=== PATIENT | male | born 1995 | race Two or more races ===

== ENCOUNTER 2025-01-06 08:55 | Day surgery (SDC) | payer BC, SELFPAY ==
[2025-01-05 06:56] VITALS: BMI 32.7
--- NOTE | 2025-01-05 07:13 | EKG_ITS ---
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
[2025-01-05 09:09] LABS: Basophils # (Auto) 0.1 Thou/mm3 (0.0-0.2); Basophils % (Auto) 1 % (0-2.5); Eosinophils # (Auto) 0.2 Thou/mm3 (0.0-0.5); Eosinophils % (Auto) 3 % (0-10); Hematocrit 45.8 % (41.0-53.0); Hemoglobin 15.5 g/dL (13.5-16.0); Immature Granulocytes % (Auto) 1 % (0-0); Immature Granulocytes Auto 0.08 Thou/mm3 (0.00-0.00); Lymphocytes % (Auto) 25 % (10-50); Mean Corpuscular HGB Conc 33.8 g/dl (31.0-37.0); Mean Corpuscular Hemoglobin 29.2 pg (25.0-35.0); Mean Corpuscular Volume 86 fL (80-100); Monocytes # (Auto) 0.8 Thou/mm3 (0.0-0.8); Monocytes % (Auto) 10 % (0-12); Neutrophils % (Auto) 61 % (37-80); Nucleated Red Blood Cell % 0 /100 WBC (0); Platelet Count 298 Thou/mm3 (140-440); RDW Standard Deviation 40.9 fL (35.1-43.9); White Blood Count 8.2 Thou/mm3 (3.8-10.6)
[2025-01-05 09:32] LABS: Alanine Aminotransferase 108 U/L (10-49); Albumin, Serum 4.5 gm/dL (3.5-5.0); Albumin/Globulin Ratio 1.9 (1.2-2.2); Alkaline Phosphatase 44 U/L (46-116); Anion Gap 8 (7-16); Aspartate Amino Transferase 66 U/L (0-34); BUN/Creatinine Ratio 13 Ratio (12-20); Bilirubin,Total 0.3 mg/dL (0.3-1.2); Blood Urea Nitrogen 14 mg/dL (9-23); Calcium 9.2 mg/dL (8.3-10.6); Calcium (Corrected) 9.2 mg/dL (8.5-10.1); Carbon Dioxide 27.4 mMol/L (20.0-31.0); Chloride 106 mMol/L (98-107); Creatinine (Component) 1.1 mg/dL (0.6-1.3); Globulin 2.4 gm/dL (2.3-3.5); Glucose 111 mg/dL (74-106); Osmolality,Calculated 282 (275-295); Potassium 4.3 mMol/L (3.4-5.1); Sodium 141 mMol/L (136-145); Total Protein 6.9 gm/dL (5.7-8.2); eGFR > 60 See Note
[2025-01-06] VITALS (7 sets, daily range): BP systolic 107–146; BP diastolic 51–86; PULSE 78–91; RESP 15–22; TEMP 36.1–36.6; O2SAT 99–100; BMI 33.5
--- NOTE | 2025-01-06 09:40 | CHAP ---
Patient expressed gratitude for prayer before their procedure.
--- NOTE | 2025-01-06 11:54 | PD.SUROPNT ---
Date of Procedure 01/06/25 Pre Op Diagnosis Pilonidal cyst and sinus without abscess Post Op Diagnosis Pilonidal cyst and sinus without abscess Procedure Wide excision of pilonidal disease Findings Patient was noted to have pilonidal cyst with underlying sinuses and multiple pits without evidence of abscess Procedure Description Patient was taken to the operating room in supine position. After administration of general endotracheal anesthesia, patient was placed in prone jackknife position. His lower back and perineum shaved and prepped and draped in standard surgical manner. Local anesthesia was administered. An elliptical incision was made around the cyst, underlying sinuses and pits. Dissection was deepened into soft tissue. The cyst along with underlying sinuses and pits were excised until healthy appearing soft tissue and skin encountered. The wound was washed and irrigated with Betadine and warm saline. Hemostasis achieved using electrocautery. Deep soft tissue reapproximated with interrupted sutures using 2-0 Vicryl. Subcutaneous tissue closed with interrupted sutures using 2-0 Vicryl and the incision was closed with 2-0 nylon in simple interrupted manner. Sterile pressure dressings applied. Patient tolerated procedure well. He was placed in supine position then extubated. He was breathing spontaneously and without difficulty and was transferred to postanesthesia care in stable condition. Instruments, needles and sponge counts were reported to be correct x 2. Anesthesia GETA and local Pathology / specimen Other (Pilonidal disease) Estimated Blood Loss 5 Condition Stable Disposition PACU Surgeon Bárbara Hunter MD Surgical Staff Operation Date: 01/06/25 11:45 <No data on this case meets the specified criteria>
--- NOTE | 2025-01-06 12:04 | SUR.PHASEI ---
pt received from OR in recovery bay 7. pt asleep but responds to voice, breathing unlabored on oxymask 8l, v/s stable. pt dressing to rectal area cdi. report received from Dr. Berg and Walter FRIEDMAN.
--- NOTE | 2025-01-06 12:34 | SUR.PHASEI ---
pt able to tolerate oral fluids without difficultly swallowing or nausea/vomiting.
--- NOTE | 2025-01-06 13:00 | SUR.PHASEII ---
pt awake and alert, breathing unlabored on room air. v/s stable. pt dressing to rectal area cdi. pt able to ambulate to wheelchair with steady gait. d/c instructions given with mother Madeleine in room, all questions answered. pt d/c via wheelchair with all belongings.
== END 2025-01-06 13:00 | disposition home or self-care (01) ==
PROVIDERS: Anesthesiology; PCP Family Medicine; Referring Provider Surgery; Visit Provider Surgery
PROC: (CPT 11771; principal; 2025-01-06 11:30)
DX: L05.91 Pilonidal cyst without abscess (principal); Z01.810 Encounter for preprocedural cardiovascular examination; E11.9 Type 2 diabetes mellitus without complications; I10 Essential (primary) hypertension
CPT/HCPCS: 11771; 36415; 80048; 80053; 85025; 93005; A4217; A4649; J0736; J1100; J1885; J2250; J2405; J2704; J3010; J3490